=== PATIENT | female | born 1990 | race Caucasian/White ===

== ENCOUNTER 2016-07-20 19:17 | Inpatient (IN) | payer BC ==
[~2016-07-20] VITALS: Ht 154.9 cm; Wt 61.0 kg
[~2016-07-20 19:17] MED LIST: DEXAMETHASONE 4 MG/ML, 1ML ONE; DOCU-30 PO; GLYCOPYRROLATE 0.2MG/1ML ONE; IBUP-1222 PO; KETOROLAC 30 MG/1 ML ONE; NEOSTIGMINE 1 MG/ML, 10ML ONE; ONDANSETRON 2MG/ML, 2ML ONE; OXYC-302 PO; PREN-3 PO; PROPOFOL 10 MG/ML, 20ML ONE; ROCURONIUM 10 MG/ML ONE; SUCCINYLCHOLINE 20 MG/ML, 10ML ONE
[2016-07-20] MEDS ORDERED: SODIUM CHLORIDE FLUSH 10ML SYR IVF ONE (19:30)
[2016-07-20 20:03] LABS: BLOOD UREA NITROGEN 19 mg/dL (7-18)
[2016-07-20] MEDS ORDERED: SODIUM CHLORIDE 0.9% 1,000 ML IV ONE (21:29)
[2016-07-20] MEDS ORDERED: SODIUM CHLORIDE 0.9% 1,000ML IVBOLUS ONE (21:30)
[2016-07-20] MEDS ORDERED: SODIUM CHLORIDE FLUSH 10ML SYR IVF PRN (21:30)
[2016-07-20] MEDS ORDERED: CEFOTETAN PMX 1GM/50ML 50 ML IVPB ONE (21:30)
[2016-07-20] MEDS ORDERED: CEFOTETAN PMX 1GM/50ML 50 ML ONE (21:36)
[2016-07-20] MEDS ORDERED: BUPIVACAINE/PF-EPI 0.5% 1:200K ONE (21:56)
[2016-07-20] MEDS ORDERED: MIDAZOLAM 1 MG/ML, 2ML ONE (22:05)
[2016-07-20] MEDS ORDERED: FENTANYL PF 250 MCG/5ML ONE (22:05)
[2016-07-20] MEDS ORDERED: FENTANYL PF 100 MCG/2ML ONE (23:22)
[2016-07-20] MEDS ORDERED: ACETAMINOPHEN 650 MG/20.3 ML UDC ONE (23:22)
[2016-07-20] MEDS ORDERED: OXYcodone 5 MG/5 ML ORAL.SOL UDC ONE (23:23)
[2016-07-20] MEDS ORDERED: OXYcodone 5 MG/5 ML ORAL.SOL UDC PO PRN (23:30)
[2016-07-20] MEDS ORDERED: ACETAMINOPHEN 325 MG TABLET PO PRN (23:30)
[2016-07-20] MEDS ORDERED: HYDROmorphone 1 MG/ML, 1ML IV PRN (23:30)
[2016-07-20] MEDS ORDERED: MIDAZOLAM 1 MG/ML, 2ML IV PRN (23:30)
[2016-07-20] MEDS ORDERED: HYDROcodone/APAP 7.5-325MG/15ML UDC PO PRN (23:30)
[2016-07-20] MEDS ORDERED: FENTANYL PF 100 MCG/2ML IV PRN (23:30)
[2016-07-20] MEDS ORDERED: ONDANSETRON 2MG/ML, 2ML IVPush PRN (23:30)
[2016-07-20] MEDS ORDERED: MEPERIDINE/PF 25MG/0.5ML IVPush PRN (23:30)
[2016-07-20] MEDS ORDERED: PROMETHAZINE 25 MG/ML, 1ML IV PRN (23:30)
[2016-07-20] MEDS ORDERED: OMNIPAQUE 350 MG/ML, 100ML BOTTLE ONE (23:57)
[2016-07-21 01:12] VITALS: BP 111/70
[2016-07-21] MEDS ORDERED: OXYC-302 PO (01:35)
== END 2016-07-21 03:15 | disposition home or self-care (01) | DRG 343 ==
LOC: ED 21:31 → EDIP 22:04 → 4NOR 07-21 00:48
PROVIDERS: ADMIT Surgery; ATTEND Surgery
PROC: 0DTJ4ZZ Resection of Appendix, Percutaneous Endoscopic Approach (ICD-10-PCS; principal; 2016-07-20 20:00)
DX: K37 Unspecified appendicitis (principal)
CPT/HCPCS: 36415; 74177; 76830; 80048; 81003; 82040; 84702; 85025; J1100; J1885; J2250; J2405; J2704; J2710; J3010; J3490; Q9967; J0330; J7030; S0074

== ENCOUNTER 2018-04-09 20:27 | Inpatient (IN) | payer BC ==
[~2018-04-09] VITALS: Ht 154.9 cm; Wt 70.0 kg
[~2018-04-09 20:27] MED LIST changes: -DEXAMETHASONE 4 MG/ML, 1ML ONE; +DOCU-131 PO; -DOCU-30 PO; -GLYCOPYRROLATE 0.2MG/1ML ONE; -KETOROLAC 30 MG/1 ML ONE; -NEOSTIGMINE 1 MG/ML, 10ML ONE; -ONDANSETRON 2MG/ML, 2ML ONE; -PROPOFOL 10 MG/ML, 20ML ONE; -ROCURONIUM 10 MG/ML ONE; -SUCCINYLCHOLINE 20 MG/ML, 10ML ONE
[2018-04-09 21:28] VITALS: BP 112/74
[2018-04-09] MEDS: D5%-LACTATED RINGERS 1,000 ML IV SCH (22:37)
[2018-04-09] MEDS ORDERED: OXYTOCIN 30U/ 0.9% NaCL 500ML 500 ML IV ONE (22:37)
[2018-04-09] MEDS ORDERED: NEWBORN KIT ONE (22:43)
[2018-04-09] MEDS ORDERED: MISOPROSTOL 200 MCG TABLET ONE (22:43)
[2018-04-09] MEDS ORDERED: OXYTOCIN 30U/ 0.9% NaCL 500ML 500 ML ONE (22:43)
[2018-04-09] MEDS ORDERED: LIDOCAINE 1%, 20ML ONE (22:43)
[2018-04-09] MEDS ORDERED: TERBUTALINE 1 MG/ML, 1ML IVPush PRN (23:00)
[2018-04-09] MEDS ORDERED: CALCIUM CARBONATE 500 MG TAB.CHEW PO PRN (23:00)
[2018-04-09] MEDS ORDERED: FENTANYL PF 100 MCG/2ML IV PRN (23:00)
[2018-04-09] MEDS ORDERED: SODIUM CITRATE/CITRIC ACID 30 ML UDC PO PRN (23:00)
[2018-04-09] MEDS ORDERED: ONDANSETRON 2MG/ML, 2ML IVPush PRN (23:00)
[2018-04-09] MEDS ORDERED: FENTANYL PF 100 MCG/2ML IVPush PRN (23:00)
[2018-04-09] MEDS: LACTATED RINGERS 1,000 ML IV SCH (23:02)
[2018-04-09] MEDS ORDERED: OXYTOCIN 30U/ 0.9% NaCL 500ML 500 ML IV SCH (23:02)
[2018-04-09] MEDS ORDERED: METOCLOPRAMIDE 5 MG/ML, 2ML ONE (23:05)
[2018-04-09] MEDS ORDERED: SODIUM CITRATE/CITRIC ACID 30 ML UDC ONE (23:05)
[2018-04-09] MEDS ORDERED: FENTANYL PF 100 MCG/2ML ONE ×2 (23:07→23:46)
[2018-04-09 23:27] LABS: BASOPHILS # (AUTO) 0.05 x10^3/uL (0-0.1); BASOPHILS % (AUTO) 0 % (0-1); EOSINOPHILS # (AUTO) 0.25 x10^3/uL (0-0.4); EOSINOPHILS % (AUTO) 2 % (1-7); LYMPHOCYTES # (AUTO) 2.87 x10^3/uL (1-3.4); LYMPHOCYTES % (AUTO) 23 % (22-44); MD NO; MEAN CORPUSCULAR HEMOGLOBIN 34.4 pg (27.0-34.8); MEAN CORPUSCULAR HGB CONC 34.9 g/dL (32.4-35.8); MEAN CORPUSCULAR VOLUME 98.5 fL (80-100); MEAN PLATELET VOLUME 9.5 fL (7.4-10.4); MONOCYTES # (AUTO) 0.76 x10^3/uL (0.2-0.8); MONOCYTES % (AUTO) 6 % (2-9); NEUTROPHILS # (AUTO) 8.75 x10^3/uL (1.8-6.8); NEUTROPHILS % (AUTO) 69 % (42-75); PLATELET COUNT 212 x10^3/uL (130-400); RED BLOOD COUNT 4.25 x10^6/uL (3.82-5.3); RED CELL DISTRIBUTION WIDTH 13.8 % (9.6-15.2)
[2018-04-09] MEDS ORDERED: SODIUM CITRATE/CITRIC ACID 30 ML UDC PO ONE (23:30)
[2018-04-09] MEDS ORDERED: METOCLOPRAMIDE 5 MG/ML, 2ML IV ONE (23:30)
[2018-04-09] MEDS ORDERED: LACTATED RINGERS 1,000 ML IVBOLUS ONE (23:30)
[2018-04-09] MEDS ORDERED: FENTANYL/BUPIV./NS/PF 250 ML EPIDCONT ONE (23:41)
[2018-04-09] MEDS ORDERED: BUPIVACAINE 0.25% ONE (23:46)
[2018-04-10] MEDS ORDERED: FENTANYL/BUPIV./NS/PF 250 ML EPIDCONT SCH (00:22)
[2018-04-10] MEDS: LACTATED RINGERS 1,000 ML IV SCH ×5 (00:22→08:22)
[2018-04-10] MEDS ORDERED: LACTATED RINGERS 1,000 ML IVBOLUS PRN (00:30)
[2018-04-10] MEDS ORDERED: ONDANSETRON 2MG/ML, 2ML IVPush PRN (00:30)
[2018-04-10] MEDS ORDERED: EPHEDRINE 50 MG/ML, 1ML IVPush PRN (00:30)
[2018-04-10] MEDS ORDERED: EPHEDRINE 50 MG/ML, 1ML ONE (04:46)
[2018-04-10] MEDS ORDERED: ACETAMINOPHEN 325 MG TABLET PO PRN ×2 (05:30)
[2018-04-10] MEDS ORDERED: ONDANSETRON 2MG/ML, 2ML IV PRN (05:30)
[2018-04-10] MEDS ORDERED: RHOGAM FROM BLOOD BANK 1 NOTE EA IM/IV ONE (05:30)
[2018-04-10] MEDS ORDERED: METHYLERGONOVINE 0.2 MG/ML IM PRN (05:30)
[2018-04-10] MEDS ORDERED: OXYcodone/APAP 5/325MG TABLET PO PRN ×2 (05:30)
[2018-04-10] MEDS ORDERED: CALCIUM CARBONATE 500 MG TAB.CHEW PO PRN (05:30)
[2018-04-10] MEDS ORDERED: OXYTOCIN 10 UNITS/ML, 1ML IM PRN (05:30)
[2018-04-10] MEDS ORDERED: CARBOPROST TROMETHAMINE 250 MCG/ML, 1ML IM PRN (05:30)
[2018-04-10] MEDS ORDERED: OXYTOCIN 30U/ 0.9% NaCL 500ML 500 ML ONE (05:43)
[2018-04-10] MEDS: OXYTOCIN 30U/ 0.9% NaCL 500ML 500 ML IV SCH ×2 (06:32→15:19)
[2018-04-10] MEDS: D5%-LACTATED RINGERS 1,000 ML IV SCH (06:37)
[2018-04-10 07:14] LABS: MEAN CORPUSCULAR HEMOGLOBIN 34.4 pg (27.0-34.8); MEAN CORPUSCULAR HGB CONC 34.6 g/dL (32.4-35.8); MEAN CORPUSCULAR VOLUME 99.4 fL (80-100); MEAN PLATELET VOLUME 9.2 fL (7.4-10.4); PLATELET COUNT 172 x10^3/uL (130-400); RED BLOOD COUNT 2.93 x10^6/uL (3.82-5.3); RED CELL DISTRIBUTION WIDTH 13.8 % (9.6-15.2)
[2018-04-10 07:15] LABS: HEMOGRAM NOTE RECHECKED
[2018-04-10] MEDS ORDERED: MISOPROSTOL 200 MCG TABLET PR ONE (07:30)
[2018-04-10 08:05] LABS: MD YES
[2018-04-10 08:07] LABS: BANDS%(MANUAL) 6 % (0-7); LYMPH#(MANUAL) 1.84 x10^3/uL (1-3.4); LYMPHS% (MANUAL) 10 % (22-44); MONOS#(MANUAL) 0.37 x10^3/uL (0.3-2.7); MONOS% (MANUAL) 2 % (2-9); SEG#(MANUAL) 15.09 x10^3/uL (1.8-6.8); SEGS% (MANUAL) 82 % (42-75)
[2018-04-10 08:08] LABS: <PLATELET ESTIMATE> ADEQUATE; <RBC MORPHOLOGY> NORMAL; LARGE PLATELETS 1+
[2018-04-10] MEDS: DOCUSATE 100 MG CAPSULE PO PRN (08:32)
[2018-04-10] MEDS: IBUPROFEN 800 MG TABLET PO PRN ×2 (08:32→17:30)
[2018-04-10] MEDS: PRENATAL VIT/IRON/FA 1 EACH TABLET PO SCH (08:32)
[2018-04-10 08:35] VITALS: BP 92/63
[2018-04-10 11:35] VITALS: BP 101/68
[2018-04-10 12:58] LABS: BASOPHILS # (AUTO) 0.03 x10^3/uL (0-0.1); BASOPHILS % (AUTO) 0 % (0-1); EOSINOPHILS # (AUTO) 0.08 x10^3/uL (0-0.4); EOSINOPHILS % (AUTO) 1 % (1-7); LYMPHOCYTES # (AUTO) 1.99 x10^3/uL (1-3.4); LYMPHOCYTES % (AUTO) 14 % (22-44); MD NO; MEAN CORPUSCULAR HEMOGLOBIN 34.7 pg (27.0-34.8); MEAN CORPUSCULAR HGB CONC 35.1 g/dL (32.4-35.8); MEAN CORPUSCULAR VOLUME 99.1 fL (80-100); MEAN PLATELET VOLUME 9.2 fL (7.4-10.4); MONOCYTES # (AUTO) 0.46 x10^3/uL (0.2-0.8); MONOCYTES % (AUTO) 3 % (2-9); NEUTROPHILS % (AUTO) 82 % (42-75); PLATELET COUNT 161 x10^3/uL (130-400); RED BLOOD COUNT 2.66 x10^6/uL (3.82-5.3); RED CELL DISTRIBUTION WIDTH 14.1 % (9.6-15.2)
[2018-04-10 16:15] VITALS: BP 91/59
[2018-04-10 19:51] VITALS: BP 100/69
[2018-04-10 23:50] VITALS: BP 99/66
[2018-04-11] MEDS: IBUPROFEN 800 MG TABLET PO PRN ×2 (01:09→09:09)
[2018-04-11] MEDS: OXYTOCIN 30U/ 0.9% NaCL 500ML 500 ML IV SCH ×2 (01:19→01:31)
[2018-04-11] MEDS ORDERED: IBUP-1222 PO ×2 (08:27→08:28)
[2018-04-11] MEDS ORDERED: OXYC-302 PO ×2 (08:27→08:28)
[2018-04-11] MEDS ORDERED: DOCU-131 PO (08:28)
[2018-04-11] MEDS ORDERED: FERR325T5 PO (08:31)
[2018-04-11] MEDS: DOCUSATE 100 MG CAPSULE PO PRN (09:09)
[2018-04-11] MEDS: PRENATAL VIT/IRON/FA 1 EACH TABLET PO SCH (09:09)
== END 2018-04-11 12:30 | disposition home or self-care (01) | DRG 807 ==
LOC: LDOP 20:27 → LDIP 22:41 → 2NW 04-10 08:05
PROVIDERS: ADMIT Obstetrics & Gynecology; ATTEND Obstetrics & Gynecology
PROC: 10E0XZZ Delivery of Products of Conception, External Approach (ICD-10-PCS; principal; 2018-04-10)
PROC: 3E0R3BZ Introduction of Anesthetic Agent into Spinal Canal, Percutaneous Approach (ICD-10-PCS; 2018-04-10)
PROC: 00HU33Z Insertion of Infusion Device into Spinal Canal, Percutaneous Approach (ICD-10-PCS; 2018-04-10)
PROC: 0HQ9XZZ Repair Perineum Skin, External Approach (ICD-10-PCS; 2018-04-10)
PROC: 0UQGXZZ Repair Vagina, External Approach (ICD-10-PCS; 2018-04-10)
PROC: 30233S1 Transfusion of Nonautologous Globulin into Peripheral Vein, Percutaneous Approach (ICD-10-PCS; 2018-04-11)
DX: O70.0 First degree perineal laceration during delivery (principal); Z37.0 Single live birth; O34.219 Maternal care for unspecified type scar from previous cesarean delivery; O90.81 Anemia of the puerperium; D64.9 Anemia, unspecified; I95.9 Hypotension, unspecified; O90.89 Other complications of the puerperium, not elsewhere classified; Z3A.00 Weeks of gestation of pregnancy not specified
CPT/HCPCS: 36415; J2790; 85025; 85461; 86850; 86900; 86923; G0378; J3010; J3490; J2590; J7120

== ENCOUNTER 2020-03-05 10:52 | Inpatient (IN) | payer BC ==
[~2020-03-05] VITALS: Ht 154.9 cm; Wt 76.4 kg
[~2020-03-05 10:52] MED LIST changes: +FERR325T5 PO
[2020-03-05] MEDS ORDERED: MISOPROSTOL 200 MCG TABLET ONE (11:09)
[2020-03-05] MEDS ORDERED: NEWBORN KIT ONE (11:09)
[2020-03-05] MEDS ORDERED: LIDOCAINE 1%, 20ML ONE (11:09)
[2020-03-05] MEDS ORDERED: OXYTOCIN 30U/ 0.9% NaCL 500ML 500 ML ONE ×2 (11:10→13:57)
[2020-03-05] MEDS ORDERED: TERBUTALINE 1 MG/ML, 1ML IVPush PRN (11:30)
[2020-03-05] MEDS ORDERED: FENTANYL PF 100 MCG/2ML IV PRN (11:30)
[2020-03-05] MEDS ORDERED: FENTANYL PF 100 MCG/2ML IVPush PRN (11:30)
[2020-03-05] MEDS ORDERED: OXYTOCIN 30U/ 0.9% NaCL 500ML 500 ML IV ONE (11:30)
[2020-03-05] MEDS ORDERED: TERBUTALINE 1 MG/ML, 1ML SQ PRN (11:30)
[2020-03-05] MEDS ORDERED: LACTATED RINGERS 1,000 ML IV SCH (11:30)
[2020-03-05] MEDS ORDERED: METOCLOPRAMIDE 5 MG/ML, 2ML IVPush PRN (11:30)
[2020-03-05] MEDS ORDERED: SODIUM CHLORIDE FLUSH 10ML SYR IVF PRN (11:30)
[2020-03-05] MEDS ORDERED: SODIUM CITRATE/CITRIC ACID 30 ML UDC PO PRN (11:30)
[2020-03-05] MEDS ORDERED: ONDANSETRON 2MG/ML, 2ML IVPush PRN (11:30)
[2020-03-05 11:32] LABS: BASOPHILS % (AUTO) 1 % (0-1); EOSINOPHILS % (AUTO) 1 % (1-7); LYMPHOCYTES % (AUTO) 14 % (22-44); MD NO; MEAN CORPUSCULAR HGB CONC 35.3 g/dL (32.4-35.8); MEAN PLATELET VOLUME 9.1 fL (7.4-10.4); MONOCYTES % (AUTO) 5 % (2-9); NEUTROPHILS % (AUTO) 79 % (42-75); PLATELET COUNT 210 x10^3/uL (130-400); RED BLOOD COUNT 4.14 x10^6/uL (3.82-5.3)
[2020-03-05 11:35] VITALS: BP 145/92
[2020-03-05] MEDS ORDERED: IBUPROFEN 600 MG TABLET ONE (13:02)
[2020-03-05] MEDS: IBUPROFEN 600 MG TABLET PO PRN ×2 (13:05→19:48)
[2020-03-05] MEDS ORDERED: HYDROcodone/APAP 5/325 TABLET PO PRN ×2 (13:30)
[2020-03-05] MEDS ORDERED: ONDANSETRON 2MG/ML, 2ML IV PRN (13:30)
[2020-03-05] MEDS ORDERED: RHOGAM FROM BLOOD BANK 1 NOTE EA IM/IV ONE (13:30)
[2020-03-05] MEDS ORDERED: ACETAMINOPHEN 325 MG TABLET PO PRN (13:30)
[2020-03-05] MEDS ORDERED: MISOPROSTOL 200 MCG TABLET PR PRN (13:30)
[2020-03-05] MEDS ORDERED: METOCLOPRAMIDE 5 MG/ML, 2ML IV PRN (13:30)
[2020-03-05] MEDS ORDERED: CALCIUM CARBONATE 500 MG TAB.CHEW PO PRN (13:30)
[2020-03-05] MEDS ORDERED: SIMETHICONE 80 MG CHEW TAB PO PRN (13:30)
[2020-03-05] MEDS: OXYTOCIN 30U/ 0.9% NaCL 500ML 500 ML IV SCH ×2 (13:59→23:30)
[2020-03-05 14:50] VITALS: BP 97/67
[2020-03-05] MEDS: DOCUSATE 100 MG CAPSULE PO PRN (19:48)
[2020-03-05 20:00] VITALS: BP 99/69
[2020-03-05 20:51] LABS: BASOPHILS % (AUTO) 0 % (0-1); EOSINOPHILS % (AUTO) 0 % (1-7); LYMPHOCYTES % (AUTO) 15 % (22-44); MEAN CORPUSCULAR HEMOGLOBIN 34.2 pg (27.0-34.8); MEAN CORPUSCULAR HGB CONC 35.3 g/dL (32.4-35.8); MEAN PLATELET VOLUME 9.3 fL (7.4-10.4); MONOCYTES % (AUTO) 5 % (2-9); NEUTROPHILS % (AUTO) 79 % (42-75); PLATELET COUNT 209 x10^3/uL (130-400); RED BLOOD COUNT 3.38 x10^6/uL (3.82-5.3); RED CELL DISTRIBUTION WIDTH 14.4 % (9.6-15.2)
[2020-03-05 20:54] LABS: MD NO
[2020-03-06 01:30] VITALS: BP 112/76
[2020-03-06] MEDS: IBUPROFEN 600 MG TABLET PO PRN ×2 (01:53→08:49)
[2020-03-06] MEDS: DOCUSATE 100 MG CAPSULE PO PRN (08:48)
[2020-03-06 09:00] VITALS: BP 108/73
[2020-03-06] MEDS ORDERED: PRENATAL VIT/IRON/FA 1 EACH TABLET PO SCH (09:00)
[2020-03-06] MEDS: OXYTOCIN 30U/ 0.9% NaCL 500ML 500 ML IV SCH (09:30)
[2020-03-06] MEDS ORDERED: DOCU-131 PO (12:04)
[2020-03-06] MEDS ORDERED: IBUP-1222 PO (12:04)
== END 2020-03-06 13:40 | disposition home or self-care (01) | DRG 807 ==
LOC: LDOP 10:52 → LDIP 11:25 → 2NW 14:39
PROVIDERS: ADMIT Obstetrics & Gynecology; ATTEND Obstetrics & Gynecology
PROC: 10E0XZZ Delivery of Products of Conception, External Approach (ICD-10-PCS; principal; 2020-03-05)
PROC: 0KQM0ZZ Repair Perineum Muscle, Open Approach (ICD-10-PCS; 2020-03-05)
PROC: 3E0234Z Introduction of Serum, Toxoid and Vaccine into Muscle, Percutaneous Approach (ICD-10-PCS; 2020-03-06)
DX: O99.52 Diseases of the respiratory system complicating childbirth (principal); Z37.0 Single live birth; O26.893 Other specified pregnancy related conditions, third trimester; Z20.822 Contact with and (suspected) exposure to COVID-19; J45.909 Unspecified asthma, uncomplicated; Z3A.39 39 weeks gestation of pregnancy; O70.1 Second degree perineal laceration during delivery; Z79.899 Other long term (current) drug therapy; Z67.41 Type O blood, Rh negative
CPT/HCPCS: 36415; 85025; 85461; 86592; 86850; 86900; 87635; G0378; J2790; J2590; J7120